=== PATIENT | male | born 1960 | race Caucasian/White ===

== ENCOUNTER 2016-12-02 19:16 | Inpatient (IN) | payer OTHER ==
[~2016-12-02] VITALS: Ht 180.3 cm; Wt 90.7 kg
[2016-12-02 19:20] VITALS: BP 122/86; PULSE 77; RESP 18; TEMP 98.9; O2SAT 95
[2016-12-02 21:11] LABS: HEMATOCRIT 34.8 % (36-54); HEMOGLOBIN 11.6 g/dL (14.0-18.0); MEAN CORPUSCULAR HEMOGLOBIN 29 pg (27-31); MEAN CORPUSCULAR HGB CONC 33 % (32-36); MEAN CORPUSCULAR VOLUME 88 fL (79.0-98.0); PLATELET COUNT (AUTO) 134 K/uL (130-430); RED BLOOD CELL COUNT(AUTO) 3.95 MIL/uL (4.2-6.2); RED CELL DISTRIBUTION WIDTH 13.8 % (9.0-15.0); WHITE BLOOD COUNT (AUTO) 3.3 K/uL (4.8-10.8)
[2016-12-02 21:23] LABS: CREATININE 1.09 mg/dL (0.55-1.30); POTASSIUM 3.5 mmol/L (3.5-5.1)
[2016-12-02 21:30] LABS: BAND % (MANUAL) 3 % (0-6); LYMPHOCYTES % (MANUAL) 6 % (20-46)
[2016-12-02 21:31] LABS: BASOPHILS % (MANUAL) 0 % (0-2); EOSINOPHILS % (MANUAL) 0 % (0-7); MONOCYTES % (MANUAL) 5 % (0-11)
[2016-12-02 21:39] LABS: TOTAL PROTEIN, SERUM 6.9 g/dL (6.4-8.3)
[2016-12-02] MEDS ORDERED: KETOROLAC TROMETHAMINE 30 MG VIAL IVP ONE (21:45)
[2016-12-02] MEDS ORDERED: NACL 0.9% 1,000 ML IV ONE ×2 (21:45→22:45)
[2016-12-02 21:48] LABS: BILIRUBIN,URINE 1+ (NEGATIVE); BLOOD, URINE 3+ (NEGATIVE); CLARITY/URINE HAZY (CLEAR); COLOR,URINE AMBER (YELLOW); GLUCOSE,URINE NEGATIVE (NEGATIVE); KETONES,URINE NEGATIVE (NEGATIVE); LEUKOCYTE ESTERASE ,URINE TRACE (NEGATIVE); NITRITE, URINE NEGATIVE (NEGATIVE); PROTEIN URINE 1+ (NEGATIVE)
[2016-12-02 22:04] LABS: UROBILINOGEN,URINE >=8 (0.2-1.0)
[2016-12-02 22:08] LABS: BACTERIA,URINE MODERATE /HPF (None Seen); MUCUS,URINE None Seen /LPF (None Seen); RBC,URINE 0-3 /HPF (0-3)
[2016-12-02] MEDS ORDERED: cefTRIAXone 1 GM VIAL ONE ×2 (23:58)
[2016-12-03] VITALS (26 sets, daily range): BP systolic 88–155; BP diastolic 41–102; PULSE 52–104; RESP 13–48; TEMP 96.5–101.8; O2SAT 89–100
[2016-12-03] MEDS ORDERED: cefTRIAXone 1 GM in D5W 50 ML IV ONE ×2
[2016-12-03] MEDS ORDERED: metroNIDAZOLE 500 MG TABLET PO ONE
[2016-12-03] MEDS: NACL 0.9% 1,000 ML IV ONE ×2 (00:20→03:45)
[2016-12-03] MEDS ORDERED: PANTOPRAZOLE SODIUM 40 MG/VIAL (PROTONIX) IVP ONE (01:00)
[2016-12-03] MEDS ORDERED: cefTRIAXone 1 GM IVPB PREMIX 50 ML IV ONE (01:57)
[2016-12-03] MEDS ORDERED: LevALBUTEROL HCL 1.25 MG/0.5 ML *CONC.* VIAL.NEB (XOPENEX CONC.) INH ONE (02:00)
[2016-12-03] MEDS: PROMETHAZINE 6.25 MG/ CODEINE 10 MG/ 5 ML PO PRN ×3 (02:16→15:26)
[2016-12-03] MEDS: POTASSIUM CHLORIDE 20 MEQ in D5/0.45 NS 1,000 ML IV SCH ×3 (02:24→20:21)
[2016-12-03] MEDS: LevALBUTEROL HCL 1.25 MG/0.5 ML *CONC.* VIAL.NEB (XOPENEX CONC.) INH SCH ×3 (07:53→19:56)
[2016-12-03] MEDS ORDERED: ACETAMINOPHEN 325 MG TABLET PO PRN (08:45)
[2016-12-03] MEDS: LACTOBACILLUS RHAMNOSUS GG 1 CAP CAPSULE PO SCH (20:18)
[2016-12-03] MEDS ORDERED: DIATR MEGLU/DIATRIZ SOD 30 ML SOLUTION PO ONE (21:25)
[2016-12-04] VITALS (25 sets, daily range): BP systolic 91–155; BP diastolic 48–72; PULSE 53–85; RESP 14–24; TEMP 96.9–98.8; O2SAT 92–100
[2016-12-04] MEDS: cefTRIAXone 1 GM in D5W 50 ML IV SCH (00:36)
[2016-12-04] MEDS: LevALBUTEROL HCL 1.25 MG/0.5 ML *CONC.* VIAL.NEB (XOPENEX CONC.) INH SCH ×4 (01:00→20:15)
[2016-12-04 07:19] LABS: ALBUMIN 1.5 g/dL (3.4-4.8); CALCIUM 7.7 mg/dL (8.4-11.0); CREATININE 0.76 mg/dL (0.55-1.30); POTASSIUM 3.8 mmol/L (3.5-5.1); TOTAL BILIRUBIN 0.6 mg/dL (0.0-1.0); TOTAL PROTEIN, SERUM 5.7 g/dL (6.4-8.3)
[2016-12-04 07:26] LABS: HEMATOCRIT 32.7 % (36-54); HEMOGLOBIN 10.4 g/dL (14.0-18.0); MEAN CORPUSCULAR HEMOGLOBIN 29 pg (27-31); MEAN CORPUSCULAR HGB CONC 32 % (32-36); MEAN CORPUSCULAR VOLUME 89 fL (79.0-98.0); PLATELET COUNT (AUTO) 88 K/uL (130-430); RED BLOOD CELL COUNT(AUTO) 3.66 MIL/uL (4.2-6.2); RED CELL DISTRIBUTION WIDTH 13.8 % (9.0-15.0)
[2016-12-04 07:38] LABS: WHITE BLOOD COUNT (AUTO) 1.8 K/uL (4.8-10.8)
[2016-12-04] MEDS: POTASSIUM CHLORIDE 20 MEQ in D5/0.45 NS 1,000 ML IV SCH ×2 (08:48→20:09)
[2016-12-04 09:21] LABS: ATYPICAL LYMPHOCYTES % 0 % (0-0); BAND % (MANUAL) 0 % (0-6); BASOPHILS % (MANUAL) 0 % (0-2); EOSINOPHILS % (MANUAL) 4 % (0-7); LYMPHOCYTES % (MANUAL) 9 % (20-46); MONOCYTES % (MANUAL) 7 % (0-11)
[2016-12-04] MEDS ORDERED: risperiDONE 1 MG TABLET (RisperDAL) PO ONE (09:30)
[2016-12-04] MEDS ORDERED: IOHEXOL 100 ML IV ONE (10:09)
[2016-12-04] MEDS: LACTOBACILLUS RHAMNOSUS GG 1 CAP CAPSULE PO SCH ×2 (10:19→20:09)
[2016-12-04] MEDS: LORazepam 1 MG TABLET PO PRN (10:19)
[2016-12-05] VITALS (14 sets, daily range): BP systolic 93–118; BP diastolic 53–68; PULSE 65–98; RESP 20–26; TEMP 97.5–99.1; O2SAT 94–97; Ht 180.3 cm; Wt 90.7 kg
[2016-12-05] MEDS: cefTRIAXone 1 GM in D5W 50 ML IV SCH (00:14)
[2016-12-05] MEDS: LevALBUTEROL HCL 1.25 MG/0.5 ML *CONC.* VIAL.NEB (XOPENEX CONC.) INH SCH ×4 (01:00→19:00)
[2016-12-05] MEDS: POTASSIUM CHLORIDE 20 MEQ in D5/0.45 NS 1,000 ML IV SCH (08:20)
[2016-12-05] MEDS ORDERED: risperiDONE 1 MG TABLET (RisperDAL) PO SCH (09:00)
[2016-12-05] MEDS: risperiDONE 1 MG TABLET (RisperDAL) PO SCH (09:37)
[2016-12-05] MEDS: LACTOBACILLUS RHAMNOSUS GG 1 CAP CAPSULE PO SCH ×2 (09:37→21:00)
[2016-12-06 00:30] VITALS: BP 116/56; PULSE 100; RESP 20; TEMP 97.8; O2SAT 97
[2016-12-06] MEDS: LevALBUTEROL HCL 1.25 MG/0.5 ML *CONC.* VIAL.NEB (XOPENEX CONC.) INH SCH ×2 (00:43→07:14)
[2016-12-06] MEDS: POTASSIUM CHLORIDE 20 MEQ in D5/0.45 NS 1,000 ML IV SCH (01:38)
[2016-12-06] MEDS: cefTRIAXone 1 GM in D5W 50 ML IV SCH (01:38)
[2016-12-06] MEDS: PROMETHAZINE 6.25 MG/ CODEINE 10 MG/ 5 ML PO PRN (03:17)
[2016-12-06 04:13] VITALS: BP 114/77; PULSE 60; RESP 18; TEMP 97.2; O2SAT 96
[2016-12-06] MEDS: LORazepam 1 MG TABLET PO PRN (04:57)
[2016-12-06 06:07] LABS: HEPATITIS A AB, IgM Negative (Negative); HEPATITIS B CORE AB, IgM Negative (Negative); HEPATITIS B SURFACE AG Negative (Negative)
[2016-12-06] MEDS: LACTOBACILLUS RHAMNOSUS GG 1 CAP CAPSULE PO SCH (08:16)
[2016-12-06] MEDS: risperiDONE 1 MG TABLET (RisperDAL) PO SCH (08:16)
== END 2016-12-06 13:40 | disposition left against medical advice (07) | DRG 253 ==
LOC: SED 19:16 → SMU 23:40 → SIC 12-03 00:38 → STU 12-05 13:02
PROVIDERS: ADMIT Family Medicine; ATTEND Family Medicine
DX: K92.2 Gastrointestinal hemorrhage, unspecified (principal); E43 Unspecified severe protein-calorie malnutrition; J18.9 Pneumonia, unspecified organism; B20 Human immunodeficiency virus [HIV] disease; E87.2 Acidosis; I95.9 Hypotension, unspecified; J44.0 Chronic obstructive pulmonary disease with (acute) lower respiratory infection; E86.0 Dehydration; D72.819 Decreased white blood cell count, unspecified; F12.90 Cannabis use, unspecified, uncomplicated; F17.210 Nicotine dependence, cigarettes, uncomplicated; F22 Delusional disorders; H91.90 Unspecified hearing loss, unspecified ear; I51.7 Cardiomegaly; J20.9 Acute bronchitis, unspecified; Z59.0 Homelessness; Z91.19 Patient's noncompliance with other medical treatment and regimen; R45.4 Irritability and anger; F19.10 Other psychoactive substance abuse, uncomplicated; K80.20 Calculus of gallbladder without cholecystitis without obstruction; Z68.27 Body mass index [BMI] 27.0-27.9, adult
CPT/HCPCS: 36415; 71010; 80053; 80074; 81000-TC; 83605; 83690-TC; 85007; 85027; 87040-TC; 87081; 94640; 94760; 96361; 96365; 96375; 99285; C9113; J0696; J1885; J1956; J3480; J7030; J7060; Q9964; Q9967

== ENCOUNTER 2016-12-06 20:28 | Emergency (ER) | payer OTHER ==
[2016-12-05 11:16] VITALS: Ht 170.2 cm; Wt 74.8 kg
[~2016-12-06] VITALS: Ht 170.2 cm; Wt 74.8 kg
[2016-12-06 20:28] VITALS: BP 132/78; PULSE 88; RESP 18; TEMP 98.1; O2SAT 99
== END 2016-12-06 20:30 ==
LOC: SED 20:28
DX: Z02.89 Encounter for other administrative examinations (principal); Z88.2 Allergy status to sulfonamides
CPT/HCPCS: 99283